=== PATIENT | female | born 1990 | race Two or more races ===

== ENCOUNTER 2019-10-02 14:18 | Emergency (ER) | payer OTHER ==
[~2019-10-02] VITALS: Ht 175.3 cm; Wt 119.3 kg
[2019-10-02] MEDS ORDERED: NEURONTIN800 MG PO (15:15)
[2019-10-02] MEDS ORDERED: FORTAMET1000 MG (15:15)
[2019-10-02] MEDS ORDERED: LIPITOR20 MG PO (15:16)
[2019-10-02] MEDS ORDERED: SEROQUEL50 MG PO (15:17)
[2019-10-02] MEDS ORDERED: ATIVAN2 M1 PO (15:17)
[2019-10-02] MEDS ORDERED: RESTORIL7.5 MG PO (15:17)
[2019-10-02] MEDS ORDERED: DEPAKOTE ER250 MG PO (15:18)
== END 2019-10-02 20:10 | disposition home or self-care (01) ==
LOC: ER 14:18
DX: K29.60 Other gastritis without bleeding (principal); E11.65 Type 2 diabetes mellitus with hyperglycemia

== ENCOUNTER 2019-11-27 16:00 | Emergency (ER) | payer OTHER ==
[~2019-11-27] VITALS: Ht 175.3 cm; Wt 121.6 kg
[~2019-11-27 16:00] MED LIST: ATIVAN2 M1 PO; DEPAKOTE ER250 MG PO; FORTAMET1000 MG; LIPITOR20 MG PO; NEURONTIN800 MG PO; RESTORIL7.5 MG PO; SEROQUEL50 MG PO
[2019-11-27] MEDS ORDERED: RISPERDAL2 MG PO (16:17)
== END 2019-11-27 23:02 | disposition home or self-care (01) ==
LOC: ER 16:00
DX: K29.60 Other gastritis without bleeding (principal)

== ENCOUNTER 2020-05-12 19:44 | Emergency (ER) | payer OTHER ==
[~2020-05-12] VITALS: Ht 175.3 cm; Wt 116.6 kg
[~2020-05-12 19:44] MED LIST changes: +RISPERDAL2 MG PO
[2020-05-13] MEDS ORDERED: MOBIC15 MG PO (01:51)
[2020-05-13] MEDS ORDERED: PEPCID40 MG PO (01:51)
== END 2020-05-13 02:01 | disposition home or self-care (01) ==
LOC: ER 19:44 → CPU-OBS 19:52 → ER 05-13 02:01
DX: M94.0 Chondrocostal junction syndrome [Tietze] (principal); Z20.828 Contact with and (suspected) exposure to other viral communicable diseases

== ENCOUNTER 2020-09-30 11:17 | Emergency (ER) | payer OTHER ==
[~2020-09-30] VITALS: Ht 165.1 cm; Wt 106.6 kg
[~2020-09-30 11:17] MED LIST changes: +MOBIC15 MG PO; +PEPCID40 MG PO
== END 2020-09-30 17:40 | disposition home or self-care (01) ==
LOC: ER 11:17
DX: E11.65 Type 2 diabetes mellitus with hyperglycemia (principal); Z20.828 Contact with and (suspected) exposure to other viral communicable diseases